=== PATIENT | male | born 1985 | race Caucasian/White ===

== ENCOUNTER 2017-09-15 01:30 | Emergency (ER) | payer BC, OTHER ==
[~2017-09-15] VITALS: Ht 170.2 cm; Wt 127.0 kg
[~2017-09-15 01:30] MED LIST: TAMS0.4C67 PO; TRAM50 PO; ZOFR4TAB3 SL
[2017-09-15 01:32] VITALS: BP 178/96; PULSE 80; RESP 16; TEMP 97.8; O2SAT 99
[2017-09-15] MEDS ORDERED: TAMS5CAP PO ×2 (02:33→06:14)
[2017-09-15 02:42] VITALS: BP 134/70; PULSE 81; RESP 18; O2SAT 98
[2017-09-15] MEDS ORDERED: SODIUM CHLOR 0.9% 1000 ML INJ 1,000 ML IV ONE (03:00)
[2017-09-15] MEDS ORDERED: KETOROLAC TROMETHAMINE 30 MG/ML (IVP) VIAL IV PUSH ONE (03:00)
--- NOTE | 2017-09-15 03:00 | PD ---
HPI . Patient has bilateral flank pain Chief Complaint: Flank/Kidney Pain Time Seen by Provider: 01:55 Travel History International Travel<30 days: No Contact w/Intl Traveler<30days: No Traveled to known affect area: No History of Present Illness HPI Patient is a 32-year-old male with complaining of 2 weeks of flank pain bilaterally radiating around to his groin area left stronger than the right he was 2 weeks ago in [place] [facility] they diagnosed him with kidney stones that were "had not dropped yet unclear whether that means that he still just in the kidney parenchyma and not in the collecting system. Comes to the ER the middle the night complaining of radiating pain flank bilateral not responding to the [id number] Motrin he was taking and he did not follow-up with the outpatient urologist they had given him. 2 years ago he said he had a to have stents placed to take out kidney stones that he had at that time he has no other significant past medical history he has no back history he is mildly obese complaining of bilateral flank pain radiating not responding to over-the- counter medications the pain is moderate at this time IN severity PFSH Past Medical History Diminished Hearing: No Genitourinary: Yes (KIDNEY STONES ) Kidney Stones: Yes Influenza Vaccination: Yes Social History Alcohol Use: Yes (OCCASIONALLY) Tobacco Use: No Substance Use: No Allergies-Medications (Allergen,Severity, Reaction): Coded Allergies: No Known Allergies (Unverified Adverse Reaction, Unknown, 09/15/17) Reported Meds & Prescriptions Reported Meds & Active Scripts Active Flomax (Tamsulosin HCl) 0.4 Mg Cap 0.4 Mg PO HS Ibuprofen 600 Mg Tab 600 Mg PO Q6H PRN Percocet (Oxycodone-Acetaminophen) 5-325 mg Tab 1 Tab PO Q6H PRN Reported Flomax (Tamsulosin HCl) 0.4 Mg Cap 0.4 Mg PO HS Review of Systems Except as stated in HPI: all other systems reviewed are Neg Physical Exam Narrative GENERAL: No acute distress SKIN: Warm and dry. HEAD: Atraumatic. Normocephalic. EYES: Pupils equal and round. No scleral icterus. No injection or drainage. ENT: No nasal bleeding or discharge. Mucous membranes pink and moist. NECK: Trachea midline. No JVD. CARDIOVASCULAR: Regular rate and rhythm. Back exam bilateral flank pain with percussion RESPIRATORY: No accessory muscle use. Clear to auscultation. Breath sounds equal bilaterally. GASTROINTESTINAL: Abdomen soft, non-tender, nondistended. Hepatic and splenic margins not palpable. MUSCULOSKELETAL: Extremities without clubbing, cyanosis, or edema. No obvious deformities. NEUROLOGICAL: Awake and alert. No obvious cranial nerve deficits. Motor grossly within normal limits. Five out of 5 muscle strength in the arms and legs. Normal speech. PSYCHIATRIC: Appropriate mood and affect; insight and judgment normal. Data Data Last Documented VS Vital Signs Date Time Temp Pulse Resp B/P (MAP) Pulse Ox O2 Delivery O2 Flow Rate FiO2 09/15/17 06:42 09/15/17 04:16 66 16 99 Room Air 09/15/17 01:32 97.8 Orders Orders Urinalysis - C+S If Indicated (09/15/17 02:37) Complete Blood Count With Diff (09/15/17 02:46) Comprehensive Metabolic Panel (09/15/17 02:46) Lipase (09/15/17 02:46) Sodium Chlor 0.9% 1000 Ml Inj (Ns 1000 M (09/15/17 03:00) Ketorolac Inj (Toradol Inj) (09/15/17 03:00) Urine Culture (09/15/17 03:04) Ceftriaxone Inj (Rocephin Inj) (09/15/17 05:30) Ed Discharge Order (09/15/17 06:42) Labs Laboratory Tests Test 09/15/17 03:04 09/15/17 04:00 Urine Color YELLOW Urine Turbidity HAZY Urine pH 6.0 Urine Specific [place] 1.010 Urine Protein 30 mg/dL Urine Glucose (UA) NEG mg/dL Urine Ketones NEG mg/dL Urine Occult Blood LARGE Urine Nitrite NEG Urine Bilirubin NEG Urine Urobilinogen LESS THAN 2 mg/dL Urine Leukocyte Esterase TRACE Urine RBC /hpf Urine WBC 38 /hpf Urine Bacteria FEW /hpf Urine Hyaline Casts 3 /lpf Urine Mucus FEW /lpf Microscopic Urinalysis Comment CULTURE INDICATED White Blood Count 14.9 TH/MM3 Red Blood Count 4.35 MIL/MM3 Hemoglobin 12.7 GM/DL Hematocrit 37.6 % Mean Corpuscular Volume 86.3 FL Mean Corpuscular Hemoglobin 29.2 PG Mean Corpuscular Hemoglobin Concent 33.8 % Red Cell Distribution Width 13.4 % Platelet Count 453 TH/MM3 Mean Platelet Volume 6.8 FL Neutrophils (%) (Auto) 66.5 % Lymphocytes (%) (Auto) 25.3 % Monocytes (%) (Auto) 7.5 % Eosinophils (%) (Auto) 0.4 % Basophils (%) (Auto) 0.3 % Neutrophils # (Auto) 9.9 TH/MM3 Lymphocytes # (Auto) 3.8 TH/MM3 Monocytes # (Auto) 1.1 TH/MM3 Eosinophils # (Auto) 0.1 TH/MM3 Basophils # (Auto) 0.0 TH/MM3 CBC Comment DIFF FINAL Differential Comment Blood Urea Nitrogen 17 MG/DL Creatinine 0.88 MG/DL Random Glucose 94 MG/DL Total Protein 7.6 GM/DL Albumin 3.2 GM/DL Calcium Level 8.6 MG/DL Alkaline Phosphatase 104 U/L Aspartate Amino Transf (AST/SGOT) 17 U/L Alanine Aminotransferase (ALT/SGPT) 38 U/L Total Bilirubin 0.2 MG/DL Sodium Level 143 MEQ/L Potassium Level 4.0 MEQ/L Chloride Level 110 MEQ/L Carbon Dioxide Level 23.4 MEQ/L Anion Gap 10 MEQ/L Estimat Glomerular Filtration Rate 99 ML/MIN Lipase 87 U/L [facility] Medical Decision Making Medical Screen Exam Complete: Yes Emergency Medical Condition: Yes Medical Record Reviewed: Yes Differential Diagnosis Renal colic versus kidney stones versus pyelonephritis versus muscle strain versus radiculopathy versus other Narrative Course Liter fluid and Toradol 30 IV he feels much better he says that he prefers when I offer him a CAT scan and to follow-up in our system otherwise at home the CAT scan will be unnecessary since ER he had one 2 weeks ago and the radiation dose would not be warranted unless we are going to follow him in our urology department he opts to follow-up as an outpatient with his prior doctor that he was supposed to see through [facility] and is discharged home with antibiotics and a few pain pills and ibuprofen, follow up with urology Diagnosis Primary Impression: Kidney stone Referrals: Ramesh Oneill DO Scripts Sulfamethoxazole-Trimethoprim (Bactrim DS) 800-160 Mg Tab 1 TAB PO BID for Infection, #14 TAB 0 Refills Prov: Vickey Julien MD 09/15/17 Tamsulosin (Flomax) 0.4 Mg Cap 0.4 MG PO HS for Manage Prostate Problems, #10 CAP 0 Refills Prov: Vickey Julien MD 09/15/17 Ibuprofen (Ibuprofen) 600 Mg Tab 600 MG PO Q6H Y for Pain/Inflammation, #40 TAB 0 Refills Prov: Vickey Julien MD 09/15/17 Oxycodone-Acetaminophen (Percocet) 5-325 mg Tab 1 TAB PO Q6H Y for PAIN, #10 TAB 0 Refills Prov: Vickey Julien MD 09/15/17 Disposition: 01 DISCHARGE HOME Condition: Good Vickey Julien MD Sep 15, 2017 03:00
[2017-09-15 03:28] LABS: BACTERIA, URINE FEW /hpf; BILIRUBIN, URINE NEG (NEG); BLOOD, URINE LARGE (NEG); GLUCOSE,URINE NEG (NEG); HYALINE CAST, URINE 3 /lpf (RARE); KETONE, URINE NEG (NEG); MUCUS URINE FEW /lpf (OCC); NITRITE,URINE NEG (NEG); URINE COLOR YELLOW (YELLW/STRAW); URINE LEUKOCYTE ESTERASE TRACE (NEG)
[2017-09-15 04:16] VITALS: BP 146/68; PULSE 66; RESP 16; O2SAT 99
[2017-09-15 04:33] LABS: AUTOMATED NEUTROPHIL # 9.9 TH/MM3 (1.8-7.7); BASOPHIL % 0.3 % (0.0-2.0); EOSINOPHIL # 0.1 TH/MM3 (0-0.4); EOSINOPHIL % 0.4 % (0.0-4.0); HEMATOCRIT 37.6 % (39.0-51.0); HEMOGLOBIN 12.7 GM/DL (13.0-17.0); LYMPH % 25.3 % (9.0-44.0); LYMPHOCYTE # 3.8 TH/MM3 (1.0-4.8); MEAN CELL VOLUME 86.3 FL (80.0-100.0); MEAN CORPUSCULAR HEMOGLOBIN 29.2 PG (27.0-34.0); MEAN CORPUSCULAR HGB CONC 33.8 % (32.0-36.0); MEAN PLATELET VOLUME 6.8 FL (7.0-11.0); MONO % 7.5 % (0.0-8.0); MONOCYTE # 1.1 TH/MM3 (0-0.9); NEUT % 66.5 % (16.0-70.0); PLATELET COUNT 453 TH/MM3 (150-450); RED BLOOD COUNT 4.35 MIL/MM3 (4.50-5.90); RED CELL DISTRIBUTION WIDTH 13.4 % (11.6-17.2); WHITE BLOOD COUNT 14.9 TH/MM3 (4.0-11.0)
[2017-09-15 04:48] LABS: ALBUMIN 3.2 GM/DL (3.4-5.0); ALT (GPT) 38 U/L (12-78); AST (GOT) 17 U/L (15-37); BICARBONATE 23.4 MEQ/L (21.0-32.0); BLOOD UREA NITROGEN 17 MG/DL (7-18); CALCIUM 8.6 MG/DL (8.5-10.1); CHLORIDE 110 MEQ/L (98-107); CREATININE 0.88 MG/DL (0.60-1.30); GLOMERULAR FILTRATION RATE 99 ML/MIN (>89); GLUCOSE,RANDOM 94 MG/DL (74-106); SODIUM (NA) 143 MEQ/L (136-145)
[2017-09-15 04:50] LABS: ALKALINE PHOSPHATASE 104 U/L (45-117); TOTAL BILIRUBIN ADULT 0.2 MG/DL (0.2-1.0); TOTAL PROTEIN 7.6 GM/DL (6.4-8.2)
[2017-09-15] MEDS ORDERED: cefTRIAXone INJ 1,000 MG in SODIUM CHLORIDE 0.9% INJ 100 ML IV ONE (05:30)
[2017-09-15] MEDS ORDERED: IBUP-232 PO (06:14)
[2017-09-15] MEDS ORDERED: PERC5TAB12 PO (06:14)
[2017-09-15] MEDS ORDERED: BACT800T5 PO (06:50)
== END 2017-09-15 07:05 | disposition home or self-care (01) ==
LOC: NEPC 01:30
DX: N20.0 Calculus of kidney (principal)
CPT/HCPCS: 80053; 81001; 83690; 85025; 87086; 96361; 96365; 96375; 99284; J0696; J1885; J7030